=== PATIENT | female | born 1960 | race African-American/Black ===

== ENCOUNTER → 2020-03-03 | Outpatient (CLI) | payer OTHER ==
[~2020-03-03] MED LIST: B12 5,000 MCG1 EACH PO; BACTRIM DS TAB1 EACH PO; BIOTIN1 MG PO; ESTROGEN-METHY1 EAC2 PO; MEDROLDOSEPACK PO; PREDNISONE50 MG PO; TRIAMCINOLONE A80 G2 TOP; TRIAMTERENE/HCT1 CA1 PO; VISTARIL OR
[2020-03-03 14:54] LABS: URINE BILIRUBIN NEGATIVE (Negative); URINE BLOOD 1+ (Negative); URINE CLARITY CLEAR; URINE COLOR YELLOW; URINE GLUCOSE-RANDOM* NEGATIVE (Negative); URINE KETONES NEGATIVE (Negative); URINE LEUKOCYTES-REFLEX NEGATIVE (Negative); URINE NITRITE-REFLEX NEGATIVE (Negative); URINE PROTEIN (DIPSTICK) TRACE (Negative); URINE UROBILINOGEN 0.2 E.U./dl (0.2-1.0)
[2020-03-03 14:58] LABS: ABSOLUTE NEUTROPHILS 2.7 thou/uL (1.4-8.2); BASOPHILS 1.2 % (0.0-2.0); EOSINOPHILS 5.8 % (0.0-3.0); HEMATOCRIT 40.8 % (37.0-47.0); LYMPHOCYTES 41.1 % (24.0-44.0); MCH 30.2 pg (26.0-34.0); MCHC 34.4 g/dL (28.0-37.0); MCV 87.9 fL (80.0-100.0); MONOCYTES 8.7 % (1.0-8.0); PLATELET COUNT 316 thou/uL (150-400); POLYS 43.2 % (36.0-66.0); RBC 4.64 mil/uL (4.20-5.00); RDW 14.4 % (10.5-14.5); WBC 6.2 thou/uL (4.0-11.0)
[2020-03-03 15:01] LABS: BACTERIA-REFLEX None Seen /HPF (None Seen); CRYSTALS None Seen /LPF (None Seen); SQUAMOUS 0-3 Few /LPF (0-3); URINE RBC 0-2 Rare /HPF (0-2); URINE WBC-REFLEX 0-5 Rare /HPF (0-5)
[2020-03-03 15:17] LABS: ALBUMIN 3.8 g/dL (3.4-5.0); ANION GAP 7 mmol/L (7-16); BUN 12 mg/dL (7-18); CALCIUM 8.8 mg/dL (8.5-10.1); CHLORIDE 101 mmol/L (98-107); CHOLESTEROL 196 mg/dL (<200); CO2 34 mmol/L (21-32); CREATININE 0.9 mg/dL (0.6-1.0); GLUCOSE 98 mg/dL (74-106); HDL CHOLESTEROL 46 mg/dL (>40); LDL CHOLESTEROL 135 mg/dL (<100); POTASSIUM 3.3 mmol/L (3.5-5.1); SGOT 23 U/L (15-37); SGPT 33 U/L (30-65); SODIUM 142 mmol/L (136-145); TC:HDL 4.3 Ratio (Not establshd); TOTAL BILIRUBIN 0.5 mg/dL (0.2-1.0); TOTAL PROTEIN 7.5 g/dL (6.4-8.2); TRIGLYCERIDE 78 mg/dL (<150); VLDL 16 mg/dL (<40)
== END ==
LOC: RAD 13:42
PROVIDERS: ATTEND Family Medicine
DX: M47.816 Spondylosis without myelopathy or radiculopathy, lumbar region (principal); G89.29 Other chronic pain; I10 Essential (primary) hypertension; M25.50 Pain in unspecified joint; Z00.00 Encounter for general adult medical examination without abnormal findings; M41.86 Other forms of scoliosis, lumbar region

== ENCOUNTER → 2020-03-21 | Outpatient (CLI) | payer OTHER | LOC: MRI 13:35 | PROVIDERS: ATTEND Family Medicine | DX: M51.27 Other intervertebral disc displacement, lumbosacral region (principal); M47.817 Spondylosis without myelopathy or radiculopathy, lumbosacral region; M51.25 Other intervertebral disc displacement, thoracolumbar region; M48.061 Spinal stenosis, lumbar region without neurogenic claudication ==

== ENCOUNTER → 2020-04-18 | Outpatient (CLI) | payer OTHER ==
[~2020-04-18] VITALS: Ht 160 cm; Wt 113.4 kg
[~2020-04-18] MED LIST changes: +AMLODIPINE BESY10 MG PO; +CHLORTHALIDONE25 MG PO; +IBUPROFEN 800800 M1 PO; +LOSARTAN POTASS50 MG PO; +MEDROXYPROGESTE10 MG PO; +MELOXICAM15 MG PO
--- NOTE | ~2020-04-18 | HPC ---
[facility] [place] [address] PAIN MANAGEMENT CONSULTATION Name: MARIELENA TRUJILLO Room #: REG SARA Lizandro.#: [id number] Admission: 04/18/20 Attend Phys: Stiven Suarez MD Discharge: Date of : 62 Report #: [id number] CC: SAUL Suarez DATE OF SERVICE: 04/18/2020 CHIEF COMPLAINT: Pain in the low back, buttocks and hips. 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 Saul Rg for consideration of an epidural injection. She has sharp pain in her low back that radiates through her buttocks and hips. It is burning and intense. It is worse when she stands for long periods of time and walking. She can then get some relief if she lays down. 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 She has worked at [facility] twice over the last 30 years, most recently over the last year, up on [facility] as a steward/stewardess dining room. She has had treatment at and has undergone physical therapy in the past. She has not done any chiropractic, but she has done some exercise in the past. She tries to keep moving. MEDICATIONS: Include both Motrin 800 mg and meloxicam. We had a lengthy discussion today about nonsteroidal anti-inflammatory drugs, risks to both kidneys, stomach as well as potential cardiac events. She needs to be cautious about taking those medicines in conjunction. She thought meloxicam is a muscle relaxant. Her full medicine list is ibuprofen 800 mg per day, meloxicam 15 mg daily, medroxyprogesterone 10 mg, losartan, amlodipine, chlorthalidone, and vitamin B12. ALLERGIES: None. PAST MEDICAL HISTORY: Hypertension. PAST SURGICAL HISTORY: Cholecystectomy. REVIEW OF SYSTEMS: Positive for weight increased fatigue, weakness, abdominal pain, nocturia, numbness and tingling into the lower extremities. FAMILY HISTORY: Positive for cancer. SOCIAL HISTORY: Works as a community service director. She denies use of tobacco. She denies use of regular alcohol, but will have an occasional glass of wine. PHYSICAL EXAMINATION: GENERAL: She is very pleasant, outgoing 59-year-old. She is wearing a mask due to COVID restrictions. She moves independently from sitting to standing position, ambulates without difficulty. VITAL SIGNS: Height is 5 feet 3 inches, but her BMI is 44.3 for morbid obesity. Blood pressure 129/84, heart rate 78, respirations 16, O2 sat 98, pain intensity 4/10. CHEST: Clear. CARDIAC: Rhythm is regular. I could not appreciate a murmur. MUSCULOSKELETAL: Examination of the spine reveals some tenderness across the lumbosacral segment. There is positive straight leg raising bilaterally following the L5-S1 distribution. IMAGING DATA: Review of an MRI scan shows that there is disk space narrowing and desiccation. There is hypertrophic facet arthrosis, worse on the left consistent with her symptoms with synovial cyst there at 3-4. This narrows the canal some, but is not significant. A grade 1 spondylolisthesis of L4 and L5 is also noted measuring 4 mm. IMPRESSION: I believe that she has no findings in her back to support the diagnosis of lumbar radiculopathy and an epidural steroid injection may be quite helpful. We will seek preauthorization for the injection from [facility], her hospital insurance and proceed with an injection as soon as possible. Procedure was explained in some detail including risks and benefits. She would like to go forward as soon as we can get a preauthorization. By: [id number] Stiven Suarez MD /nt
[2020-04-18 09:40] VITALS: BP 129/84
--- NOTE | 2020-04-18 10:22 | NUR ---
Pain Clinic Assessment: 1. History of Osteoarthritis: SPINE History of Rheumatoid Arthritis: Not Applicable 2. Height: 5 ft. 3 in. 160.0 cm. Weight: 250.0 lb. oz. 113.400 kg. Patient's BMI: 44.3 3. Vital Signs: BP: 129/84 Pulse: 78 Resp: 16 Temp: 02 Sat: 98 ECG Mon: 4. Pain Intensity: 4 5. Fall Risk: Dizziness: N Needs help standing or walking: N Fallen in the last 3 months: N Fall risk comments: 6. Patient on Blood Thinner: None 7. History of Hypertension: Y 8. Opioid Therapy greater than 6 weeks: N Opiate Contract Signed: 9. Risk Assessment Tool Provided: 1-LOW 10. Functional Assessment Tool: 11. Recreational Drug Use: Never Drug Type: Tobacco Use: Never Smoker Tobacco Type: Amount or Packs/day: How Many Years: Alcohol Use: Yes Frequency: Special Occasions Quant: 1 OR 2
== END ==
LOC: PAIN 07:06
PROVIDERS: ATTEND Anesthesiology Pain Medicine
DX: M54.5 Low back pain (principal); R10.2 Pelvic and perineal pain; M25.551 Pain in right hip; M25.552 Pain in left hip; I10 Essential (primary) hypertension; Z79.899 Other long term (current) drug therapy

== ENCOUNTER → 2020-05-09 | Outpatient (CLI) | payer OTHER ==
[~2020-05-09] VITALS: Ht 160 cm; Wt 113.4 kg
[2020-05-09 11:07] VITALS: BP 120/83
--- NOTE | 2020-05-09 11:22 | NUR ---
Pain Clinic Assessment: 1. History of Osteoarthritis: SPINE History of Rheumatoid Arthritis: Not Applicable 2. Height: 5 ft. 3 in. 160.0 cm. Weight: 250.0 lb. oz. 113.400 kg. Patient's BMI: 44.3 3. Vital Signs: BP: 120/83 Pulse: 81 Resp: 16 Temp: 02 Sat: 98 ECG Mon: 4. Pain Intensity: 5 5. Fall Risk: Dizziness: N Needs help standing or walking: N Fallen in the last 3 months: N Fall risk comments: 6. Patient on Blood Thinner: None 7. History of Hypertension: Y 8. Opioid Therapy greater than 6 weeks: N Opiate Contract Signed: 9. Risk Assessment Tool Provided: 1-LOW 10. Functional Assessment Tool: 11. Recreational Drug Use: Never Drug Type: Tobacco Use: Never Smoker Tobacco Type: Amount or Packs/day: How Many Years: Alcohol Use: Yes Frequency: Quant:
== END | disposition home or self-care (01) ==
LOC: PAIN 06:53
PROVIDERS: ATTEND Anesthesiology Pain Medicine
DX: M54.16 Radiculopathy, lumbar region (principal); G89.29 Other chronic pain; I10 Essential (primary) hypertension; Z98.890 Other specified postprocedural states; Z79.899 Other long term (current) drug therapy; Z90.49 Acquired absence of other specified parts of digestive tract